=== PATIENT | male | born 1985 | race African-American/Black ===

== ENCOUNTER 2019-02-08 21:35 | Emergency (ER) | payer MEDICAID ==
[~2019-02-08] VITALS: Ht 182.9 cm; Wt 89.4 kg
[2019-02-08 21:42] VITALS: Ht 182.9 cm; Wt 89.4 kg
[2019-02-09 01:06] VITALS: BP 132/77
== END 2019-02-09 01:06 | disposition home or self-care (01) ==
LOC: ED 21:35
DX: T78.49XA Other allergy, initial encounter (principal); X58.XXXA Exposure to other specified factors, initial encounter
CPT/HCPCS: J1200; J2930; J3490